=== PATIENT | male | born 1985 | race Caucasian/White ===

== ENCOUNTER 2019-10-15 12:21 | Emergency (ER) | payer BC ==
[2019-10-15] MEDS ORDERED: CEPHALEXIN500 MG PO (13:25)
[2019-10-15] MEDS ORDERED: LORTAB 1010 MG PO (13:25)
[2019-10-15] MEDS ORDERED: BACTRIM DS1 TAB PO (13:25)
[2019-10-15 13:50] VITALS: BP 129/73
--- NOTE | 2019-10-19 09:32 | NUR ---
PT CALLED, SPOKE WITH HATTIE IN ER, INQUIRING ABOUT STOPPING ONE ABX. PT WAS DC ON KEFLEX AND BACTRIM, WOUND CULTURE SHOWS E COLI WITH GUERRERO SENSITIVITY, OK FOR PT TO STOP BACTRIM BUT CONTINUE FULL COURSE OF KEFLEX.
== END 2019-10-15 13:50 | disposition home or self-care (01) | DRG 349 ==
LOC: ED 12:21
PROC: 0D9QXZZ Drainage of Anus, External Approach (ICD-10-PCS; principal; 2019-10-15)
DX: K61.0 Anal abscess (principal); B96.20 Unspecified Escherichia coli [E. coli] as the cause of diseases classified elsewhere